=== PATIENT | male | born 1960 | race Native Hawaiian/Other Pacific Islander ===

== ENCOUNTER 2020-06-12 11:44 | Emergency (ER) | payer OTHER ==
[~2020-06-12] VITALS: Ht 167.6 cm; Wt 90.7 kg
[2020-06-12 16:05] VITALS: BP 125/71
== END 2020-06-12 16:05 | disposition home or self-care (01) ==
LOC: ED 11:44
DX: T63.461A Toxic effect of venom of wasps, accidental (unintentional), initial encounter (principal); R06.02 Shortness of breath; Y92.89 Other specified places as the place of occurrence of the external cause
CPT/HCPCS: 96360; 96361; 96372; 96374; 96375; 99284; J1200; J2405; J2930